=== PATIENT | female | born 1980 | race Native Hawaiian/Other Pacific Islander ===

== ENCOUNTER 2022-04-17 22:02 | Emergency (ER) | payer BC ==
[~2022-04-17] VITALS: Ht 167.6 cm; Wt 108.4 kg
[2022-04-17 22:54] LABS: PLATELET COUNT 309 K/uL (152-353)
[2022-04-17 23:03] LABS: POTASSIUM 4.2 mmol/L (3.6-5.2)
[2022-04-18 02:20] VITALS: BP 102/54; TEMP 98.2
== END 2022-04-18 02:20 | disposition home or self-care (01) ==
LOC: ED 22:02
PROVIDERS: Emergency Medicine
DX: N83.291 Other ovarian cyst, right side (principal)
CPT/HCPCS: 36415; 80053; 81002; 81015; 85027; 96360; 96374; 99284; J1885; Q9963